=== PATIENT | female | born 1975 | race Caucasian/White ===

== ENCOUNTER → 2016-12-31 | Outpatient (CLI) | payer MEDICAID ==
[~2016-12-31] MED LIST: ATEN1TAB30 PO; CHOL10003 PO; DULO30CA23 PO; FISH1CAP47 PO; MULT-806 PO; PHEN30CA PO; THYR30TA PO; TRAM-277 PO; [UNRECOGNIZED DRUG - CODE] PO
== END ==
LOC: WC.BC 07:55
DX: Z12.31 Encounter for screening mammogram for malignant neoplasm of breast (principal); N64.59 Other signs and symptoms in breast